=== PATIENT | female | born 1995 | race African-American/Black ===

== ENCOUNTER 2020-09-12 11:37 | Emergency (ER) | payer BC, SELFPAY ==
--- NOTE | ~2020-09-12 | US_ITS ---
EXAMINATION: US OB <=14 wk fetus w TV DATE: 09/12/2020 13:01 INDICATION: Pelvic pain with . TECHNIQUE: Real-time transabdominal and transvaginal pelvic ultrasound was performed. COMPARISON: None. FINDINGS: TRANSABDOMINAL ULTRASOUND: The uterus measures 11.0 x 8.3 x 8.1 cm. TRANSVAGINAL ULTRASOUND: There is an intrauterine gestational sac. A yolk sac is identified. The fet al crown rump length measures 9 mm, which correlates with an estimated gestational age of 6 weeks and 6 day(s) (+/-) 0 week(s) and 4 day(s). heart motion is identified measuring 134 beats per drew te (bpm) by M-mode Doppler. The right ovary is not visualized. The left ovary measures 3.5 x 2.0 x 2. 0 cm. There is trace free fluid in the pelvis. IMPRESSION: 1. Single living intrauterine gestation with estimated date of delivery of 05/02/2021. Reviewed, dictated and finalized at location A. IMPRESSION: 1. Single living intrauterine gestation with estimated date of delivery of 05/02.
[2020-09-12 11:43] VITALS: BP 120/60; PULSE 102; RESP 16; TEMP 36.9; O2SAT 100
[2020-09-12 12:11] LABS: Basophils Percent Auto 0.4 % (0.2-1.2); Eosinophils Absolute Auto 0.4 K/mm3 (0-0.3); Eosinophils Percent Auto 5.4 % (0-4.4); Hematocrit 38.9 % (37.0-47.0); Hemoglobin 12.6 g/dL (12.0-15.0); Immature Granulocyte Absolute 0.02 K/mm3 (0.00-0.031); Immature Granulocyte Percent A 0.3 % (0-0.5); Lymphocytes Absolute Auto 3.97 K/mm3 (0.9-3.2); Lymphocytes Percent Auto 52.2 % (18.3-44.2); Mean Corpuscular HGB Conc 32.4 g/dl (32-36); Mean Corpuscular Hemoglobin 27.1 pg (26-34); Mean Corpuscular Volume 83.7 fl (80-100); Mean Platelet Volume 10.4 fl (7.4-10.4); Monocytes Absolute Auto 0.4 K/mm3 (0.1-0.6); Monocytes Percent Auto 5.4 % (2.6-8.5); Neutrophils Absolute Auto 2.8 K/mm3 (1.3-6.7); Neutrophils Percent Auto 36.3 % (45.5-73.1); Platelet Count Result 269 k/mm3 (150-375); Red Blood Count 4.65 M/mm3 (4.2-5.4); White Blood Count 7.6 K/mm3 (4.5-10.0)
[2020-09-12 12:27] LABS: Add Urine Microscopic? YES; Appearance Urine Cloudy (Clear); Bacteria Urine Trace /hpf; Bilirubin Urine Negative (Negative); Blood Urine Negative (Negative); Color Urine Yellow (Yellow); Glucose Urine UA Negative (Negative); Ketones Urine Negative (Negative); Leukocyte Esterase Ur Negative LEU/UL (Negative); Mucus Urine Rare /lpf; Nitrate Urine Negative (Negative); Protein Urine Negative (Negative); RBC Urine 0-2 /hpf (0-2); Specific Grav Ur 1.018 (1.001-1.035); Squamous Epithelial Cell Urine Many /hpf (Few); Urobilinogen Urine Negative mg/dL (<2.0); WBC Urine 0-3 /hpf
[2020-09-12 12:34] LABS: Alanine Aminotransferase 22 U/L (4-35); Albumin Level 4.1 g/dL (3.5-5.1); Alkaline Phosphatase 51 U/L (38-126); Anion Gap 9 mmol/L (8-16); Aspartate Amino Transferase 23 U/L (14-36); Bilirubin,Total 0.4 mg/dL (0.2-1.3); Blood Urea Nitrogen 10 mg/dL (7-17); Calcium 9.3 mg/dL (8.4-10.2); Carbon Dioxide 25 mmol/L (22-30); Chloride 102 mmol/L (98-107); Estimated CRCL calculation 98 ml/min; Estimated Glomerular Filt Rate > 60; Glucose 53 mg/dL (65-105); Lipase 127 U/L (23-300); Potassium 3.8 mmol/L (3.4-5.0); Sodium 136 mmol/L (137-145)
--- NOTE | 2020-09-12 13:02 | ED.GENADULT ---
HPI - General Adult General Chief complaint: Abdominal Pain Stated complaint: pain on left side of face Time Seen by Provider: 09/12/20 11:48 Source: patient History of Present Illness HPI narrative: Patient is a 25 y/o female complaining of left lower abdominal pain for 1-2 weeks. She is and her LMP was sometime in July. She describes her pain as sharp and rates it as 5/10. There is no alleviating or exacerbating factor. There is no pain radiation. She also has some white vaginal discharge. She also has been having left facial/jaw/neck pain for over 1 year. Related Data Allergies Allergy/AdvReac Type Severity Reaction Status Date / Time metoclopramide [From Reglan] Allergy Rash Verified 09/12/20 11:51 Review of Systems Constitutional: Constitutional: Denies chills, Denies fever(s), Denies headache(s) and Denies weakness Eyes: Eyes: Denies blurry vision ENT: Reports as per HPI, Denies headache(s) and Denies neck pain Cardiovascular: Cardiovascular: Denies chest pain and Denies dyspnea Respiratory: Respiratory: Denies cough and Denies dyspnea Gastrointestinal: Gastrointestinal: Reports abdominal pain, Denies diarrhea, Reports nausea and Reports vomiting Genitourinary: Genitourinary: Denies hematuria, Denies dysuria, Reports pelvic pain and Reports vaginal discharge Musculoskeletal: Musculoskeletal: Denies back pain and Denies neck pain Neurologic: Denies headache(s) and Denies weakness Exam Const: General: no acute distress and well developed Orientation/consciousness: oriented to person, oriented to place, oriented to time and patient oriented x3 HENMT: Head: normocephalic Ears: external ears normal General nose exam: Normal external nose present Eyes: General: appearance normal, both eyes and all related structures Conjunctivae: conjunctivae normal Neck: Neck: normal visual inspection and full ROM Chest: Chest palpation & inspection: normal inspection of the chest and no tenderness Resp: Effort & Inspection: normal respiratory effort Auscultation: clear to auscultation bilaterally Cardio: Rate: regular rate Rhythm: regular rhythm GI: GI Palp: No abdominal tenderness and Yes Soft to palpation : General: Yes bimanual renal exam normal bilaterally External Female Exam: normal external appearance Speculum Exam - Vagina: other (white vaginal discharge suggesting yeast infection) Speculum Exam - Cervix: Cervical os closed Skin: General skin exam: normal color and turgor normal Neuro: General: oriented to person, oriented to place, oriented to time and patient oriented x3 Cognition (Neuro): normal cognition Extrem: General: normal to inspection, full ROM and no pedal edema Psych: Appearance: grossly normal Mental Status: mental status grossly normal Affect: normal affect Course Vital Signs Vital signs: Vital Signs Temperature 36.9 C 09/12/20 11:43 Pulse Rate 102 H 09/12/20 11:43 Respiratory Rate 16 09/12/20 11:43 Blood Pressure 120/60 09/12/20 11:43 Pulse Oximetry 100 09/12/20 11:43 Temperature 36.9 C 09/12/20 11:43 Pulse Rate 102 H 09/12/20 11:43 Respiratory Rate 16 09/12/20 11:43 Blood Pressure 120/60 09/12/20 11:43 Pulse Oximetry 100 09/12/20 11:43 Medical Decision Making Vital Signs Vital Signs: Vital Signs Temperature 36.9 C 09/12/20 11:43 Pulse Rate 102 H 09/12/20 11:43 Respiratory Rate 16 09/12/20 11:43 Blood Pressure 120/60 09/12/20 11:43 Pulse Oximetry 100 09/12/20 11:43 Temperature 36.9 C 09/12/20 11:43 Pulse Rate 102 H 09/12/20 11:43 Respiratory Rate 16 09/12/20 11:43 Blood Pressure 120/60 09/12/20 11:43 Pulse Oximetry 100 09/12/20 11:43 Lab Data Result diagrams: 09/12/20 12:00 09/12/20 12:00 Labs: Lab Results 09/12/20 09/12/20 09/12/20 Range/Units 12:00 12:00 12:00 WBC 7.6 (4.5-10.0) K/mm3 RBC 4.65 (4.2-5.4) M/mm3 Hgb 12.6 (12.0-15.0) g
[2020-09-12 15:37] LABS: Glucose Point of Care 115 (65-105)
[2020-09-12] MEDS: cefTRIAXone 250 MG VIAL IM (16:03)
[2020-09-12] MEDS: AZITHROMYCIN 250 MG TABLET 1000 MG PO (16:03)
[2020-09-12] MEDS: LIDOCAINE HCL 1% LOCAL INJ 20 ML VIAL (16:04)
== END 2020-09-12 16:13 | disposition home or self-care (01) ==
PROVIDERS: Nurse Practitioner; Emergency Provider Emergency Medicine
DX: O26.891 Other specified pregnancy related conditions, first trimester (principal); R10.2 Pelvic and perineal pain; R68.84 Jaw pain; O99.280 Endocrine, nutritional and metabolic diseases complicating pregnancy, unspecified trimester; E87.6 Hypokalemia; O99.891 Other specified diseases and conditions complicating pregnancy; N89.8 Other specified noninflammatory disorders of vagina; Z3A.01 Less than 8 weeks gestation of pregnancy
CPT/HCPCS: 36415; 76801; 76817; 80053; 81001; 81025; 82948; 83690; 84702; 85025; 86900; 86901; 87070; 87491; 87591; 87808; 96372; 99284; A9270; J0696